=== PATIENT | male | born 1955 | race Caucasian/White ===

== ENCOUNTER 2016-12-01 18:48 | Emergency (ER) | payer OTHER ==
[2016-12-01 18:57] VITALS: BP 144/90; PULSE 94; TEMP 98.5; BMI 29.0
--- NOTE | 2016-12-01 19:14 | PDOC ---
History of Present Illness - General History Source: Patient Exam Limitations: No Limitations - History of Present Illness Initial Comments: 12/01/16 19:23 The patient is a 61 year old male, with a significant past medical history of DM who presents to the emergency department with upper back pain since today. The patient reports his pain often radiates to his front side of his chest with any deep breaths. The patient ranks his pain a 5/10 in pain intensity. He denies any history of trauma or injury. He denies any UE numbness/tingling. He denies any recent travel. He denies any LE swelling/pain. He denies any abdominal pain. He denies any recent fevers, headache or dizziness. He denies any recent nausea, vomit, diarrhea or constipation. He denies any recent shortness of breath. He denies any recent dysuria, frequency, urgency or hematuria. PAST MEDICAL HISTORY: See HPI PAST SURGICAL HISTORY: No significant history. FAMILY HISTORY: No pertinent history. SOCIAL HISTORY: Patient lives with family and is employed. MEDICATIONS: Reviewed. ALLERGIES: As per nursing notes. ROS General: No fevers, no weakness, no weight loss HEENT: No change in vision. No sore throat. No ear pain CardioVascular: No shortness of breath Respiratory:No cough, or wheezing. Gastrointestinal: No nausea, vomiting, diarrhea or constipation. No rectal bleeding Genitourinary: No dysuria, hematuria, or frequency Musculoskeletal:+back pain. No joint or muscle pain or swelling Neurologic: No headache, vertigo, dizziness or loss of consciousness Psychiatric: No depression Skin: No rashes or easy bruising Endocrine: no increased thirst or abnormal weight change Allergic: no skin or latex allergy All other systems reviewed and normal Exam: General: Well-nourished well-developed individual, no acute distress HEENT: Throat: Normal, tonsils normal, no erythema or exudate Neck: Supple, no meningeal signs, no lymphadenopathy Eyes: Pupils equal reactive and round, extraocular motion intact Back: Tenderness on palpation mid thoracic spine. No paraspinal tenderness. Pain is not reproduced on anterior upper chest. Chest: Nontender to palpation Cardiac: S1-S2 normal, regular rate and rhythm, no murmurs rubs or gallops Respiratory: Lungs clear to auscultation bilateral Abdomen: Soft, nondistended, normal bowel sounds, nontender to palpation diffusely Extremities: Warm, dry, no cyanosis, clubbing, or edema Skin: No rashes Neuro: Alert and oriented x3, nonfocal exam, grossly intact, normal gait Psych: Normal mood and affect <Doroteo Palencia - Last Filed: 12/01/16 19:23> - General History Source: Patient Exam Limitations: No Limitations - History of Present Illness Initial Comments: 12/01/16 22:10 A portion of this note was documented by scribe services under my direction. I have reviewed the details of the note, within reason, and agree with the documentation. The case summary and management plan written by me. Assessment and plan: This is a 61-year-old male who comes in complaining of acute exacerbation of his chronic back pain. Patient was concerned because there was some radiation this time and it seemed to be exacerbated with a deep respiration. Patient otherwise without complaints. Patient had a complete workup including EKG that showed no acute pathology. Patient had a chest x-ray that was negative for any acute pathology. Patient's thoracic spine x-ray did show degenerative pathology in the area of his pain. Patient's workup showed a negative troponin and no acute abnormal laboratory values. Patient has had ongoing pain for several days. But has not been taking anything. Patient was given Toradol here in the emergency room and I sent a prescription for Naprosyn to his pharmacy. Patient will follow-up with his primary care doctor. <Sherri Matt I - Last Filed: 12/02/16 06:48> - General Chief Complaint: Back Pain Stated Complaint: UPPER BACK PAIN Time Seen by Provider: 12/01/16 19:14 Past History <Doroteo Palencia - Last Filed: 12/01/16 19:23> - Past Medical History Diabetes: Yes Psychiatric Problems: Yes (anxiety) - Immunization History Immunization Up to Date: Yes - Psycho/Social/Smoking Cessation Hx Anxiety: No Suicidal Ideation: No Smoking History: Never smoked Have you smoked in the past 12 months: No Information on smoking cessation initiated: No Hx Alcohol Use: No Drug/Substance Use Hx: No Substance Use Type: None <Sherri Matt I - Last Filed: 12/02/16 06:48> - Past Medical History Allergies/Adverse Reactions: Allergies Allergy/AdvReac Type Severity Reaction Status Date / Time No Known Allergies Allergy Verified 12/01/16 18:58 Home Medications: Ambulatory Orders Alprazolam [Xanax] 1 mg PO DAILY 12/01/16 Esomeprazole Magnesium [Nexium 24Hr] 20 mg PO DAILY 12/01/16 Invokana 12/01/16 Naproxen 250 mg PO BID #14 tablet 12/01/16 *Physical Exam - Vital Signs Last Vital Signs Temp Pulse Resp BP Pulse Ox 98.5 F 94 H 20 144/90 100 12/01/16 18:52 12/01/16 18:52 12/01/16 18:52 12/01/16 18:52 12/01/16 18:52 <Doroteo Palencia - Last Filed: 12/01/16 19:23> - Vital Signs Last Vital Signs Temp Pulse Resp BP Pulse Ox 98.5 F 94 H 20 144/90 100 12/01/16 18:52 12/01/16 18:52 12/01/16 18:52 12/01/16 18:52 12/01/16 18:52 <Sherri Matt I - Last Filed: 12/02/16 06:48> ED Treatment Course - LABORATORY CBC & Chemistry Diagram: 12/01/16 20:00 12/01/16 20:00 <Sherri Matt I - Last Filed: 12/02/16 06:48> *DC/Admit/Observation/Transfer - Attestations Scribe Attestion: 12/01/16 19:21 Documentation prepared by Doroteo Palencia, acting as biomedical field service engineer for Sherri Matt MD. <Doroteo Palencia - Last Filed: 12/01/16 19:23> - Discharge Dispostion Admit: No <Sherri Matt I - Last Filed: 12/02/16 06:48> Diagnosis at time of Disposition: Back pain, thoracic Qualifiers: Chronicity: chronic Back pain laterality: midline Qualified Code(s): M54.6 - Pain in thoracic spine - Discharge Dispostion Disposition: HOME Condition at time of disposition: Stable - Prescriptions Prescriptions: Naproxen 250 mg PO BID #14 tablet - Patient Instructions Additional Instructions: For the pain take Naprosyn 1 tablet twice a day with food do not take it on an empty stomach. Return to the emergency department immediately with ANY new, persistent or worsening symptoms. Continue any medications as previously prescribed by your physician. You should follow up with your primary doctor as soon as possible regarding today's emergency department visit. . Please make sure your doctor reviews the results of your emergency evaluation. Thank you for coming to the Emergency Department today for your care. It was a pleasure to see you today. Please note that your evaluation is INCOMPLETE until you follow-up with your doctor.
[2016-12-01 20:17] LABS: BASOPHIL 1.8 % (0-2.0); EOSINOPHIL 1.5 % (0-4.5); MCHC 34.7 g/dl (32.0-35.9); MEAN CELL VOLUME 83.4 fl (80-96); MEAN PLT VOLUME 8.6 fl (7.5-11.1); NEUTROPHILS 56.1 % (42.8-82.8); PLATELET COUNT 192 K/MM3 (134-434); RDW 12.4 % (11.9-15.9); WHITE BLOOD COUNT 10.5 K/mm3 (4.0-10.8)
[2016-12-01 20:30] LABS: ALBUMIN 4.8 g/dl (3.5-5.0); ALK PHOS 67 U/L (32-92); ANION GAP 4 (8-16); BILIRUBIN,TOTAL 1.8 mg/dl (0.2-1.0); CALCIUM 9.4 mg/dl (8.4-10.2); CO2 29 mmol/L (22-28); CREATININE 0.9 mg/dl (0.6-1.3); GLUCOSE,RANDOM 180 mg/dl (74-106); SGOT/AST 18 U/L (10-42); SGPT/ALT 26 U/L (10-40); TOT PROT 8.2 g/dl (6.4-8.3)
[2016-12-01 21:03] LABS: CPK 94 IU/L (39-308)
[2016-12-01 21:13] LABS: TROPONIN I (DFP) < 0.03 ng/ml (0.03-0.50)
[2016-12-01] MEDS ORDERED: KETOROLAC TROMETHAMINE 60 MG/2 ML VIAL IM ONE (21:59)
[2016-12-01] MEDS ORDERED: KETOROLAC TROMETHAMINE 60 MG/2 ML VIAL ONE (22:02)
--- NOTE | 2016-12-02 08:21 | EKG ---
Test Reason : Blood Pressure : / mmHG Vent. Rate : 099 BPM Atrial Rate : 099 BPM P-R Int : 160 ms QRS Dur : 086 ms QT Int : 348 ms P-R-T Axes : 025 -39 041 degrees QTc Int : 446 ms SINUS RHYTHM LEFT ANTERIOR FASCICULAR BLOCK ABNORMAL ECG WHEN COMPARED WITH ECG OF 03-JAN-2005 16:25, NO SIGNIFICANT CHANGE WAS FOUND Confirmed by BRITTON JAFFE MD ([id number]) on 12/02/2016 8:21:40 AM Referred By: DR BUNCH Confirmed By:BRITTON JAFFE MD
== END 2016-12-01 22:13 | disposition home or self-care (01) ==
LOC: FER 18:48
PROC: 3E0233Z Introduction of Anti-inflammatory into Muscle, Percutaneous Approach (ICD-10-PCS; principal; 2016-12-01)
DX: M54.6 Pain in thoracic spine (principal); E11.9 Type 2 diabetes mellitus without complications
CPT/HCPCS: 36415; 71020-TC; 72070-TC; 80053; 84484; 85025; 85379; 93005; 96372; 99283-25

== ENCOUNTER 2024-03-20 03:59 | Day surgery (SDC) | payer OTHER ==
[2024-03-20 06:26] VITALS: BMI 26.6
[2024-03-20] MEDS ORDERED: LIDOCAINE HCL/PF 2% SDV 5ML VIAL ONE (07:42)
[2024-03-20] MEDS ORDERED: ONDANSETRON 4 MG/2 ML VIAL ONE (07:42)
[2024-03-20] MEDS ORDERED: ceFAZolin SODIUM 1 GM VIAL ONE (07:42)
[2024-03-20] MEDS ORDERED: DEXAMETHASONE SOD PHOSPHATE 4 MG/1 ML VIAL ONE (07:42)
[2024-03-20] MEDS ORDERED: SUCCINYLCHOLINE CHLORIDE 200 MG/10 ML SYRINGE ONE (07:43)
[2024-03-20] MEDS ORDERED: ROCURONIUM BROMIDE 50 MG/5 ML SYRINGE ONE (07:43)
[2024-03-20] MEDS ORDERED: PROPOFOL 60 ML ONE (07:43)
[2024-03-20] MEDS ORDERED: MIDAZOLAM HCL 2 MG/2 ML SINGLE DOSE VIAL ONE (07:43)
[2024-03-20] MEDS ORDERED: CEFOXITIN SODIUM 2 GM IVPB ONE (08:15)
[2024-03-20] MEDS: cefOXitin SODIUM 2 GM VIAL (RESTRICTED TO ID) IVPB ONE (08:25)
[2024-03-20] MEDS: BUPIVACAINE HCL/PF 0.25% (2.5MG/ML) 10 ML VIAL IJ ONE (08:34)
[2024-03-20] MEDS ORDERED: SUGAMMADEX SODIUM 200 MG/2 ML VIAL ONE (09:18)
[2024-03-20] MEDS ORDERED: ONDANSETRON 4 MG/2 ML VIAL IVPUSH PRN (09:42)
[2024-03-20] MEDS ORDERED: ACETAMINOPHEN INJECTION 100 ML ONE (09:44)
[2024-03-20] MEDS ORDERED: LACTATED RINGERS SOLUTION 1,000 ML IV SCH (09:45)
[2024-03-20] MEDS: ACETAMINOPHEN 1000 MG/100 ML BAG IVPB ONE (09:48)
[2024-03-20] MEDS: FENTANYL CITRATE/PF 50 MCG/ML VIAL IVPUSH SCH (10:15)
[2024-03-20] MEDS ORDERED: HYDROmorphone HCL CARPU-JECT 2 MG/1 ML DISP.SYRIN ONE (10:45)
[2024-03-20] MEDS: HYDROmorphone HCL/PF 1 MG/ML VIAL IVPUSH ONE (10:48)
[2024-03-20 10:56] VITALS: RESP 16
[2024-03-20 13:51] VITALS: BP 126/76; PULSE 90; TEMP 97.5
== END 2024-03-20 14:28 | disposition home or self-care (01) ==
LOC: JASU-SURG 03:59
PROVIDERS: ATTEND Surgery
PROC: 0FT44ZZ Resection of Gallbladder, Percutaneous Endoscopic Approach (ICD-10-PCS; principal; 2024-03-20 08:00)
DX: K80.20 Calculus of gallbladder without cholecystitis without obstruction (principal)
CPT/HCPCS: 82962; 86850; 86900; 86901; 88304-TC; 94760; J0131